=== PATIENT | male | born 1945 | race Caucasian/White ===

== ENCOUNTER 2025-01-27 13:29 | Outpatient (CLI) | payer MEDICARE ==
[2025-01-27] MEDS ORDERED: Iopamidol 370 76% 100 ML VIAL ONE (14:28)
[2025-01-27 14:57] LABS: Estimated GFR - POC 89.0
== END 2025-01-27 13:30 | disposition home or self-care (01) ==
LOC: CT 13:29
PROVIDERS: ATTEND Otolaryngology Plastic Surgery within the Head & Neck
DX: D37.030 Neoplasm of uncertain behavior of the parotid salivary glands (principal); E04.1 Nontoxic single thyroid nodule; K11.0 Atrophy of salivary gland
CPT/HCPCS: 36000; 36415; 70491; 82565; Q9967

== ENCOUNTER 2025-02-16 13:08 | Outpatient (CLI) | payer MEDICARE | END 2025-02-16 13:09 | disposition home or self-care (01) | LOC: CT 13:08 | PROVIDERS: ATTEND Otolaryngology | DX: C07 Malignant neoplasm of parotid gland (principal) | CPT/HCPCS: 71250 ==